=== PATIENT | female | born 1995 | race Caucasian/White ===

== ENCOUNTER 2018-01-03 18:14 | Emergency (ER) | payer BC ==
[2018-01-03] MEDS ORDERED: diphenhydrAMINE 25 MG CAP PO ONE (18:26)
[2018-01-03] MEDS ORDERED: FAMOTIDINE 20 MG TAB PO ONE (18:26)
[2018-01-03] MEDS ORDERED: predniSONE 20 MG TAB PO ONE (18:26)
--- NOTE | 2018-01-03 18:30 | EDPHY ---
H & P Stated Complaint: generalized hives, possible rxn to pcn? Time Seen by Provider: 01/03/18 18:19 HPI/ROS: CHIEF COMPLAINT: Possible allergic reaction to penicillin HISTORY OF PRESENT ILLNESS: 22-year-old female with no prior history of anaphylaxis or known allergic reaction to penicillin, arrives via private vehicle with her boyfriend. States that her boyfriend is currently being treated for strep pharyngitis with Pen-VK. Shortly prior to arrival they were engaged in sexual activity and shortly thereafter she developed urticaric symptoms. She is concerned that she might have an adverse reaction to his Pen- VK transmitted via body fluids during sexual activity. No prior history of similar. She has never use penicillin previously . No history of anaphylaxis. Her primary complaint is itching. No dyspnea. No abdominal pain. No nausea or vomiting. She also notes concurrent sunburn. Denies: Dyspnea, chest pain, odynophagia, dysphagia, glossal or tonsil enlargement. PRIMARY CARE PROVIDER: REVIEW OF SYSTEMS: A ten point review of systems was performed and is negative with the exception of the items mentioned in the HPI PAST MEDICAL & SURGICAL HISTORY: No pertinent medical or surgical history SOCIAL HISTORY: Nonsmoker PHYSICAL EXAM (Prior to examination, patient consented to physical exam, hands were washed and my usual and customary physical exam procedures followed) 1) GENERAL: Well-developed, well-nourished, alert and oriented. Appears to be in no acute distress. Smiling, laughing 2) HEAD: Normocephalic, atraumatic 3) HEENT: Pupils equal, round, reactive to light bilaterally. Sclera anicteric. Nasopharynx, oropharynx, clear, no lesions. No tonsillar glossal edema. 4) NECK: Full range of motion, no meningeal signs. 5) LUNGS: Clear auscultation bilaterally, no wheezes, no rhonchi, no retractions. 6) HEART: Regular rate and rhythm, no murmur, no heave, no gallop. 7) ABDOMEN: No guarding, no rebound, no focal tenderness, 8) MUSCULOSKELETAL: Moving all extremities, no focal areas of tenderness, no obvious trauma. No peripheral edema or discoloration. 9) BACK: No CVA tenderness, no midline vertebral tenderness, no fluctuance, no step-off, no obvious trauma, no visual or palpable abnormality. 10) SKIN: She has concurrent sunburn with overlying raised salmon color lesions consistent with urticaria. 11) Psychiatric: Patient is oriented X 3, there is no agitation. DIFFERENTIAL DIAGNOSIS: In no particular include but limited to contact dermatitis, urticaria, anaphylaxis - Personal History Current Tetanus/Diphtheria Vaccine: Unsure Current Tetanus Diphtheria and Acellular Pertussis (TDAP): Unsure - Medical/Surgical History Hx Asthma: No Hx Chronic Respiratory Disease: No Hx Diabetes: No Hx Cardiac Disease: No Hx Renal Disease: No Hx Cirrhosis: No Hx Alcoholism: No Hx HIV/AIDS: No Hx Splenectomy or Spleen Trauma: No Other PMH: none reported - Social History Smoking Status: Smoker current status UNK Constitutional: Initial Vital Signs Temperature (C) 36.8 C 01/03/18 18:16 Heart Rate 69 01/03/18 18:16 Respiratory Rate 20 01/03/18 18:16 Blood Pressure 122/76 H 01/03/18 18:16 O2 Sat (%) 97 01/03/18 18:16 Allergies/Adverse Reactions: Penicillins Allergy (Verified 01/03/18 18:16) Home Medications: Medication Instructions Recorded PENICILLIN V POTASSIUM 01/03/18 Medical Decision Making ED Course/Re-evaluation: 6:30 p.m.: Doubt anaphylaxis. Will administer oral H1 H2 antagonists, prednisone and observe the patient for a period of time. Do not think that epinephrine is currently indicated. Care of patient under supervision of secondary supervising physician Dr Castro . 7:09 p.m.: Re-evaluation. She is feeling improvement in her itching. She does note new nausea after the oral medications that were given her. She will be given oral Zofran. Her abdomen is soft at this time however with no complaints of abdominal pain no guarding no rebound. 7:21 p.m.: Oral Zofran have been ordered on the patient was to be administered at this time however when the nurse walked in the room she was actively eating pizza. Zofran will be held. 7:40 p.m. Patient was re-evaluated with serial exams most recently at this time She is progressively improving. She is complaining of some epigastric discomfort after the prednisone however she has eaten half a pizza while in the emergency department and tolerated this well. Will administer GI cocktail prior to discharge. No signs of anaphylaxis. Plan will be discharge. Given usual and customary allergic reaction precautions instructions. I recommend she attempt to identify any potential allergens and not encounter those in the future. - Data Points Medications Given: Discontinued Medications Diphenhydramine HCl (Benadryl) 50 mg PO EDNOW ONE Stop: 01/03/18 18:27 Last Admin: 01/03/18 18:36 Dose: Not Given Famotidine (Pepcid) 40 mg PO EDNOW ONE Stop: 01/03/18 18:27 Last Admin: 01/03/18 18:36 Dose: 40 mg Prednisone (Prednisone) 60 mg PO EDNOW ONE Stop: 01/03/18 18:27 Last Admin: 01/03/18 18:37 Dose: 60 mg Departure - Departure Disposition: Home, Routine, Self-Care Clinical Impression: Urticaria Condition: Good Instructions: Urticaria (ED) Additional Instructions: Call 911 if you develop shortness of breath, chest pain, abdominal pain or any other symptoms that concern you. Referrals: [facility],. [Clinic] - 1-2 days without fail
[2018-01-03] MEDS ORDERED: ONDANSETRON DISINTEGRATING 4 MG TAB PO ONE (19:10)
[2018-01-03] MEDS ORDERED: LIDOCAINE 2% VISCOUS 15 ML UDCUP PO ONE (19:41)
[2018-01-03] MEDS ORDERED: MAG HYDROX/AL HYDROX/SIMETH 30 ML UDCUP PO ONE (19:41)
[2018-01-03] MEDS ORDERED: HYOSCYAMINE SULFATE 0.125 MG TAB PO ONE (19:41)
[2018-01-03 19:55] VITALS: BP 124/80; PULSE 60; RESP 16; TEMP 97.9; O2SAT 96
== END 2018-01-03 19:55 | disposition home or self-care (01) ==
DX: L50.9 Urticaria, unspecified (principal)
CPT/HCPCS: J7512

== ENCOUNTER 2018-02-14 12:21 | Emergency (ER) | payer BC ==
--- NOTE | 2018-02-14 12:59 | CPEKG ---
Heart Rate: 57 RR Interval: 1053 P-R Interval: 128 QRSD Interval: 78 QT Interval: 412 QTC Interval: 401 P [place]: 19 QRS [place]: 62 T Wave [place]: 60 EKG Severity - NORMAL ECG - EKG Impression: SINUS RHYTHM Electronically Signed By: Fortunato Castro 14-Feb-2018 13:40:42
[2018-02-14 13:10] LABS: PLATELET COUNT 238 10^3/uL (150-400)
--- NOTE | 2018-02-14 13:32 | EDPHY ---
H & P Smoking Status: Former smoker Time Seen by Provider: 02/14/18 12:32 HPI/ROS: CHIEF COMPLAINT: Near syncope HISTORY OF PRESENT ILLNESS: 22-year-old female presents to the emergency department after having a near syncopal episode early this morning around 2:00 a.m.. The patient was smoking marijuana and then when she took a shower she felt like her vision was going dark and she felt nauseous like she was going to throw up and felt like she was going to pass out. She did not lose consciousness however. No reported trauma. She did not fall and hit her head. Denies chest pain or difficulty breathing. Denies abdominal pain. Denies neck or back pain. No fevers or chills. REVIEW OF SYSTEMS: Constitutional: No fever, no chills. Eyes: No double or blurry vision. ENT: No sore throat. Respiratory: No cough, no shortness of breath. Cardiac: No chest pain. Gastrointestinal: No abdominal pain, vomiting or diarrhea. Genitourinary: No dysuria. Musculoskeletal: No neck or back pain. Skin: No rashes. Neurological: No headache. (Jackie Gregory) Past Medical/Surgical History: Negative (Jackie Gregory) Social History: Single (Jackie Gregory) Physical Exam: General Appearance: Alert, no distress. No visible signs of trauma to her head. Eyes: Pupils equal and round. Extraocular motions are all intact. ENT: Mouth: Mucous membranes moist. Respiratory: No wheezing, rhonchi, or rales, lungs are clear to auscultation. Cardiovascular: Regular rate and rhythm. Gastrointestinal: Abdomen is soft and nontender, no masses, no rebound or guarding, bowel sounds normal. Neurological: Alert and oriented x 3, cranial nerves II through XII grossly intact Skin: Warm and dry, no rashes. Musculoskeletal: Nontender to palpate along the cervical, thoracic or lumbar spine. Neck is supple. Extremities: Full range of motion and no peripheral edema. Psychiatric: Patient is oriented X 3, there is no agitation. (Jackie Gregory) Constitutional: Initial Vital Signs Temperature (C) 36.8 C 02/14/18 12:26 Heart Rate 66 02/14/18 12:26 Respiratory Rate 18 02/14/18 12:26 Blood Pressure 115/79 02/14/18 12:26 O2 Sat (%) 98 02/14/18 12:26 O2 Delivery Mode Room Air Allergies/Adverse Reactions: Penicillins Allergy (Verified 01/03/18 18:16) Home Medications: Medication Instructions Recorded PENICILLIN V POTASSIUM 01/03/18 Medical Decision Making - Diagnostics EKG Interpretation: 12-lead EKG interpreted by me; official reading is in trace master. My interpretation is sinus rhythm rate 57 no electrical abnormality seen. (Fortunato Castro) ED Course/Re-evaluation: 22-year-old female presents to the emergency department after having a near syncopal episode. The patient had normal laboratory studies and a normal EKG. She was given some juice and crackers and was feeling much better. She is comfortable being discharged home. I encouraged her return to the emergency department she had recurring syncopal activities or any other concerns. (Jackie Gregory) Differential Diagnosis: Near Syncope including but not limited to vasovagal syncope, arrhythmia, dehydration, and blood loss. (Jackie Gregory) - Data Points Laboratory Results: Laboratory Results 02/14/18 12:55 02/14/18 12:55 02/14/18 02/14/18 02/14/18 12:55 12:55 12:55 WBC 5.34 10^3/uL 10^3/uL (3.80-9.50) RBC 4.77 10^6/uL 10^6/uL (4.18-5.33) Hgb 14.5 g/dL g/dL (12.6-16.3) Hct 43.8 % % (38.0-47.0) MCV 91.8 fL fL (81.5-99.8) MCH 30.4 pg pg (27.9-34.1) MCHC 33.1 g/dL g/dL (32.4-36.7) RDW 12.4 % % (11.5-15.2) Plt Count 238 10^3/uL 10^3/uL (150-400) MPV 11.1 fL fL (8.7-11.7) Neut % (Auto) 58.9 % % (39.3-74.2) Lymph % (Auto) 27.3 % % (15.0-45.0) [place] % (Auto) 8.1 % % (4.5-13.0) Eos % (Auto) 5.1 % % (0.6-7.6) Baso % (Auto) 0.4 % % (0.3-1.7) Nucleat RBC Rel Count 0.0 % % (0.0-0.2) Absolute Neuts (auto) 3.15 10^3/uL 10^3/uL (1.70-6.50) Absolute Lymphs (auto) 1.46 10^3/uL 10^3/uL (1.00-3.00) Absolute Monos (auto) 0.43 10^3/uL 10^3/uL (0.30-0.80) Absolute Eos (auto) 0.27 10^3/uL 10^3/uL (0.03-0.40) Absolute Basos (auto) 0.02 10^3/uL 10^3/uL (0.02-0.10) Absolute Nucleated RBC 0.00 10^3/uL 10^3/uL (0-0.01) Immature Gran % 0.2 % % (0.0-1.1) Immature Gran # 0.01 10^3/uL 10^3/uL (0.00-0.10) Sodium 142 mEq/L mEq/L (135-145) Potassium 4.2 mEq/L mEq/L (3.5-5.2) Chloride 106 mEq/L mEq/L (97-110) Carbon Dioxide 22 mEq/l mEq/l (22-31) Anion Gap 14 mEq/L mEq/L (8-16) BUN 10 mg/dL mg/dL (7-23) Creatinine 0.7 mg/dL mg/dL (0.6-1.0) Estimated GFR > 60 Glucose 77 mg/dL mg/dL (70-100) Calcium 9.0 mg/dL mg/dL (8.5-10.4) Beta HCG, Qual NEGATIVE Departure - Departure Disposition: Home, Routine, Self-Care Clinical Impression: Near syncope Condition: Good Instructions: Near Syncope (ED) Additional Instructions: Diet and activity as tolerated. Referrals: [facility] [Other] - As per Instructions
[2018-02-14 13:55] VITALS: BP 113/74
== END 2018-02-14 13:56 | disposition home or self-care (01) ==
DX: R55 Syncope and collapse (principal); Z87.891 Personal history of nicotine dependence

== ENCOUNTER 2018-02-14 21:36 | Emergency (ER) | payer BC ==
--- NOTE | 2018-02-14 21:43 | EDPHY ---
H & P Stated Complaint: DIZZINESS/ D/C'D AT 1400 FROM ER Time Seen by Provider: 02/14/18 21:43 HPI/ROS: HPI CHIEF COMPLAINT: Lightheadedness HISTORY OF PRESENT ILLNESS: Patient is a 22-year-old female, she was seen here earlier in the emergency room for dizziness and trouble with her vision after smoking marijuana late last night and getting hot shower want 1 o'clock in the morning. She states she almost had a syncopal episode but did not fully pass out. She presents emergency room stating that she felt fine after being discharged and then stood up very quickly tonight and got lightheaded felt like she was going to pass out so she decided come back to the emergency room. She denies any chest pain or shortness of breath. Denies room spinning sensation. Denies headache. She denies head strike earlier. She states she just feels very lightheaded. Of note upon arrival here in the emergency room her blood pressure noted to be in the 90s. Will check orthostatics. Past Medical History: No significant medical history Past Surgical History: No significant surgical Social History: Smokes marijuana. Denies recent alcohol use or tobacco. Family History: Noncontributory ROS REVIEW OF SYSTEMS: A comprehensive 10 point review of systems is otherwise negative aside from elements mentioned in the history of present illness. Exam Constitutional appears well nontoxic no acute distress, triage nursing summary reviewed, vital signs reviewed, awake/alert. Vital signs noted at triage Eyes normal conjunctivae and sclera, EOMI, PERRLA. HENT normal inspection, atraumatic, moist mucus membranes, no epistaxis, neck supple/ no meningismus, no raccoon eyes. Respiratory clear to auscultation bilaterally, normal breath sounds, no respiratory distress, no wheezing. Cardiovascular rate normal, regular rhythm, no murmur, no edema, distal pulses normal. Gastrointestinal soft, non-tender, no rebound, no guarding, normal bowel sounds, no distension, no pulsatile mass. Genitourinary no CVA tenderness. Musculoskeletal no midline vertebral tenderness, full range of motion, no calf swelling, no tenderness of extremities, no meningismus, good pulses, neurovascularly intact. Skin pink, warm, & dry, no rash, skin atraumatic. Neurologic awake, alert and oriented x 3, AAOx3, moves all 4 extremities equally, motor intact, sensory intact, CN II-XII intact, normal cerebellar, normal vision, normal speech. Psychiatric normal mood/affect. Heme/Lymph/Immune no lymphadenopathy. Differential Diagnosis: Includes but is not limited to in a particular order dehydration, electrolyte disturbance, orthostatic hypotension, cardiac arrhythmia, anxiety, vertigo Medical Decision Making: Plan for this patient IV established with IV fluid bolus check orthostatics, check basic blood work, EKG, rn orthopaedic and re- evaluate. Re-evaluation: EKG interpretation by me on record in [employer] system. Impression time of EKG 2158: This is sinus rhythm rate of 50. No signs of cardiac arrhythmia. No signs of WPW or [place]. No signs of ischemia. Unremarkable EKG. 1220: Patient re-evaluated resting comfortably she had 2 L of fluid ambulated well throughout the emergency room without difficulty. She denies chest pain or shortness of breath. Denies lightheadedness. There has been no evidence of cardiac arrhythmia on the monitor. Patient's EKG is unremarkable. ED x-ray chest one view was negative for acute cardiopulmonary disease. I encouraged patient's stay well-hydrated drink lots of fluids. Rest. Encourage ambulation. May add some salt to her diet increase her volume status. Follow up with [facility] as needed. Return emergency room if there is worsening symptoms questions or concerns. They understand. Comfortable this plan Source: Patient - Personal History LMP (Females 10-55): Over 28 Days Ago Current Tetanus Diphtheria and Acellular Pertussis (TDAP): Yes - Medical/Surgical History Hx Asthma: No Hx Chronic Respiratory Disease: No Hx Diabetes: No Hx Cardiac Disease: No Hx Renal Disease: No Hx Cirrhosis: No Hx Alcoholism: No Hx HIV/AIDS: No Hx Splenectomy or Spleen Trauma: No Other PMH: none reported - Social History Smoking Status: Former smoker Constitutional: Initial Vital Signs Temperature (C) 36.3 C 02/14/18 21:38 Heart Rate 64 02/14/18 21:38 Respiratory Rate 16 02/14/18 21:38 Blood Pressure 99/68 L 02/14/18 21:38 O2 Sat (%) 98 02/14/18 21:38 O2 Delivery Mode Room Air Allergies/Adverse Reactions: Penicillins Allergy (Verified 01/03/18 18:16) Home Medications: Medication Instructions Recorded NK [No Known Home Meds] 02/14/18 Medical Decision Making - Diagnostics Imaging Results: Imaging Impressions Chest X-Ray 02/14/18 21:49 Impression: No acute abnormality. - Data Points Laboratory Results: Laboratory Results 02/14/18 21:50 02/14/18 21:50 02/14/18 02/14/18 02/14/18 21:50 21:50 21:50 WBC RBC Hgb Hct MCV MCH MCHC RDW Plt Count MPV Neut % (Auto) Lymph % (Auto) [place] % (Auto) Eos % (Auto) Baso % (Auto) Nucleat RBC Rel Count Absolute Neuts (auto) Absolute Lymphs (auto) Absolute Monos (auto) Absolute Eos (auto) Absolute Basos (auto) Absolute Nucleated RBC Immature Gran % Immature Gran # D-Dimer < 0.27 ug/mLFEU ug/mLFEU (0.00-0.50) Sodium 141 mEq/L mEq/L (135-145) Potassium 4.2 mEq/L mEq/L (3.5-5.2) Chloride 106 mEq/L mEq/L (97-110) Carbon Dioxide 23 mEq/l mEq/l (22-31) Anion Gap 12 mEq/L mEq/L (8-16) BUN 11 mg/dL mg/dL (7-23) Creatinine 0.7 mg/dL mg/dL (0.6-1.0) Estimated GFR > 60 Glucose 77 mg/dL mg/dL (70-100) Calcium 8.8 mg/dL mg/dL (8.5-10.4) Magnesium 2.0 mg/dL mg/dL (1.6-2.3) Total Bilirubin 0.3 mg/dL mg/dL (0.1-1.4) Conjugated Bilirubin 0.3 mg/dL mg/dL (0.0-0.5) Unconjugated Bilirubin 0.0 mg/dL mg/dL (0.0-1.1) AST 23 IU/L IU/L (14-46) ALT 27 IU/L IU/L (9-52) Alkaline Phosphatase 43 IU/L IU/L (38-126) Creatine Kinase 60 IU/L IU/L (0-156) CK-MB (CK-2) Fraction 0.42 ng/mL ng/mL (0.00-3.19) Troponin I < 0.012 ng/mL ng/mL (0.000-0.034) Total Protein 6.5 g/dL g/dL (6.3-8.2) Albumin 3.8 g/dL g/dL (3.5-5.0) Beta HCG, Qual NEGATIVE 02/14/18 21:50 WBC 5.89 10^3/uL 10^3/uL (3.80-9.50) RBC 4.51 10^6/uL 10^6/uL (4.18-5.33) Hgb 13.8 g/dL g/dL (12.6-16.3) Hct 41.0 % % (38.0-47.0) MCV 90.9 fL fL (81.5-99.8) MCH 30.6 pg pg (27.9-34.1) MCHC 33.7 g/dL g/dL (32.4-36.7) RDW 12.4 % % (11.5-15.2) Plt Count 248 10^3/uL 10^3/uL (150-400) MPV 11.3 fL fL (8.7-11.7) Neut % (Auto) 37.1 % L % (39.3-74.2) Lymph % (Auto) 42.6 % % (15.0-45.0) [place] % (Auto) 10.9 % % (4.5-13.0) Eos % (Auto) 8.5 % H % (0.6-7.6) Baso % (Auto) 0.7 % % (0.3-1.7) Nucleat RBC Rel Count 0.0 % % (0.0-0.2) Absolute Neuts (auto) 2.19 10^3/uL 10^3/uL (1.70-6.50) Absolute Lymphs (auto) 2.51 10^3/uL 10^3/uL (1.00-3.00) Absolute Monos (auto) 0.64 10^3/uL 10^3/uL (0.30-0.80) Absolute Eos (auto) 0.50 10^3/uL H 10^3/uL (0.03-0.40) Absolute Basos (auto) 0.04 10^3/uL 10^3/uL (0.02-0.10) Absolute Nucleated RBC 0.00 10^3/uL 10^3/uL (0-0.01) Immature Gran % 0.2 % % (0.0-1.1) Immature Gran # 0.01 10^3/uL 10^3/uL (0.00-0.10) D-Dimer Sodium Potassium Chloride Carbon Dioxide Anion Gap BUN Creatinine Estimated GFR Glucose Calcium Magnesium Total Bilirubin Conjugated Bilirubin Unconjugated Bilirubin AST ALT Alkaline Phosphatase Creatine Kinase CK-MB (CK-2) Fraction Troponin I Total Protein Albumin Beta HCG, Qual Medications Given: Discontinued Medications Sodium Chloride (Ns) 1,000 mls @ 0 mls/hr IV EDNOW ONE; Wide Open PRN Reason: Protocol Stop: 02/14/18 21:50 Last Admin: 02/14/18 22:01 Dose: 1,000 mls Sodium Chloride (Ns) 1,000 mls @ 0 mls/hr IV ONCE ONE PRN Reason: Wide Open Stop: 02/14/18 22:15 Last Admin: 02/14/18 22:44 Dose: 1,000 mls Departure - Departure Disposition: Home, Routine, Self-Care Clinical Impression: Orthostatic hypotension Condition: Good Instructions: Syncope (ED) Additional Instructions: 1. Make sure to drink lots of fluids over the next few days. 2. Do not go from a lying or sitting position up to a standing position very quickly. Take your time. 3. Return emergency room if you pass out or feel worse. Referrals: Patient,NotPresent [Primary Care Provider] - As per Instructions
[2018-02-14] MEDS ORDERED: NS 1,000 ML IV ONE ×2 (21:49→22:14)
--- NOTE | 2018-02-14 22:00 | CPEKG ---
Heart Rate: 50 RR Interval: 1200 P-R Interval: 152 QRSD Interval: 78 QT Interval: 452 QTC Interval: 413 P [place]: 54 QRS [place]: 49 T Wave [place]: 49 EKG Severity - NORMAL ECG - EKG Impression: SINUS RHYTHM Electronically Signed By: Daniel Gonzales 15-Feb-2018 06:14:28
[2018-02-14 22:05] LABS: PLATELET COUNT 248 10^3/uL (150-400)
[2018-02-14 22:18] LABS: CREATINE KINASE 60 IU/L (0-156)
[2018-02-15 00:06] VITALS: BP 106/72
== END 2018-02-15 00:22 | disposition home or self-care (01) ==
DX: I95.1 Orthostatic hypotension (principal); E86.9 Volume depletion, unspecified; Z87.891 Personal history of nicotine dependence